=== PATIENT | female | born 1995 | race Caucasian/White ===

== ENCOUNTER 2023-05-24 21:56 | Emergency (ER) | payer OTHER, SELFPAY ==
[2023-05-24 22:08] VITALS: BP 142/73; PULSE 102; RESP 18; TEMP 37.4; O2SAT 100; BMI 42.1
[2023-05-24 23:06] LABS: Anion Gap 11 (12-20); Blood Urea Nitrogen 11 mg/dL (9-16); Calcium 8.8 mg/dL (8.4-10.2); Carbon Dioxide 27 mmol/L (22-29); Chloride 108 mmol/L (96-108); Creatinine Clr Calc Pharmacy 123.8; Estimated Glomerular Filt Rate > 60; Glucose Random 105 mg/dL (60-115); Potassium 3.8 mmol/L (3.3-5.1); Sodium 142 mmol/L (135-145)
[2023-05-24 23:20] LABS: Basophils Absolute Auto 0.1 X10*3/uL (0.0-0.2); Basophils Percent Auto 0.5 % (0-2); Eosinophils Absolute Auto 0.2 X10*3/uL (0.0-0.4); Eosinophils Percent Auto 2.2 % (0-4); Hematocrit 23.8 % (37.0-47.0); Imm Gran Abs Auto 0.02 X10*3/uL (0.00-0.03); Imm Gran Pct Auto 0.2 % (0.0-0.4); Lymphocytes Percent Auto 26.6 % (20-40); Mean Corpuscular HGB Conc 27.7 g/dl (31.0-35.0); Mean Corpuscular Hemoglobin 17.6 pg (27.0-33.0); Mean Platelet Volume 9.3 fL (9.4-12.3); Monocytes Absolute Auto 0.9 X10*3/uL (0.1-1.2); Monocytes Percent Auto 8.3 % (2-11); Neutrophils Absolute Auto 6.9 x10*3/uL (2.0-8.3); Neutrophils Percent Auto 62.2 % (45-73); Platelet Count 465 X10*3/uL (160-400); Red Blood Count 3.75 X10*6/uL (4.20-5.50); Red Cell Distribution Width 17.7 % (11.0-16.0); White Blood Count 11.1 X10*3/uL (4.8-10.8)
[2023-05-24 23:26] LABS: Mean Corpuscular Volume 63.5 fL (80.0-98.0)
[2023-05-24 23:28] LABS: Hemoglobin 6.6 g/dl (12.0-16.0)
[2023-05-24 23:29] LABS: MANUAL DIFF FLAG SCAN
[2023-05-24 23:30] LABS: SLIDE REVIEW VERIFIED
[2023-05-25] VITALS (11 sets, daily range): BP systolic 101–130; BP diastolic 45–71; PULSE 84–106; RESP 12–20; TEMP 36.5–36.9; O2SAT 98–100
[2023-05-25 00:34] LABS: Appearance Urine Cloudy; Color Urine Dark Yellow; Glucose Urine UA Negative (Negative); Leukocyte Esterase Urine Negative (Negative); Nitrite Urine Negative (Negative); Specific Gravity - Urine >= 1.030 (1.005-1.025); UMIC TRIGGER UACC YES; Urine Blood Large (3+) (Negative); Urine Ketones Trace mg/dL (Negative); Urine Protein 30 (1+) mg/dL (Neg-Trace)
[2023-05-25 00:35] LABS: UPreg QC Valid YES; Urine Pregnancy NEGATIVE (NEGATIVE)
[2023-05-25 00:37] LABS: Bacteria Urine None Seen (None Seen); RBC Urine >20 /HPF (0-2); Squamous Epithelial Cell Urine 0-2 /HPF (0-2); WBC Urine 0-5 /HPF (0-5)
--- NOTE | 2023-05-25 00:56 | ED.GENADULT ---
HPI - General Adult General Chief complaint: Abdominal Pain Stated complaint: heavy menses Time Seen by Provider: 05/25/23 00:55 History of Present Illness HPI narrative: The patient is a 27-year-old who comes to the emergency room because of vaginal bleeding. She says she has been having ongoing vaginal bleeding for the last 3 or 4 months but it has been heavier over the last 2 weeks. Today she felt somewhat weak and decided to come to the emergency room. She has not fainted. The patient says that she had heavy vaginal bleeding 5 years ago when she was 22. At that time she was seen at [facility]. She reports that she had received 2 units of packed red cells because of her anemia associated with her vaginal bleeding. She says that 2 days after she received the 2 units of packed red cells she had a syncopal episode and went back to [facility] and received another 2 units of blood. The patient says that at that time she was also diagnosed with PCOS and was seeing an cassandra architect. She was on metformin. The patient has not seen a doctor in a few years. She does not have any recollection of ever seeing a budget counselor. She has certainly not seen a budget counselor in the last few years. She has had a chest pain. No fever, sweats, chills. She is quite certain she has not . No abdominal pain, nausea, vomiting. Related Data Previous Rx's ?Medication ?Instructions ?Recorded ferrous sulfate 325 mg (65 mg 325 mg PO DAILY #30 tabs 05/25/23 iron) tablet (Iron (ferrous sulfate)) medroxyprogesterone 10 mg tablet 10 mg PO DAILY #30 tabs 05/25/23 (Provera) Allergies Allergy/AdvReac Type Severity Reaction Status Date / Time epinephrine [EPINEPHRINE] Allergy Unknown SWELLING Verified 05/24/23 22:15 Review of Systems Review of Systems: Yes all other systems are reviewed and are negative [facility] Social History Social History Smoked in Last 30 Days: No Use of substances other than those prescribed or required for medical reasons: No Advance Directives: No Advance Directives Information Provided: No Patient : No Physical Exam ED Vital Signs: Vital Signs - 24 hr 05/24/23 22:08 05/25/23 00:14 05/25/23 02:42 Temperature 99.3 F 98.2 F 97.7 F Pulse Rate 102 H 88 90 Respiratory Rate 18 16 12 Blood Pressure 142/73 H 130/71 120/64 Pulse Oximetry 100 98 Oxygen Delivery Method Room Air Room Air 05/25/23 02:58 Temperature 98.1 F Pulse Rate 84 Respiratory Rate 14 Blood Pressure 114/66 Pulse Oximetry Oxygen Delivery Method BMI result Body Mass Index 42.1 Const Other: The patient is awake and alert. She looks mildly pale but does not seem in distress. HENMT Other: Face is symmetrical. Mucous membranes are moist Eyes Other: Pupils are round equal, conjunctivae are clear, extraocular movements intact. Resp Effort & Inspection: normal respiratory effort Auscultation: clear to auscultation bilaterally Cardio Rate: regular rate Rhythm: regular rhythm Heart sounds: S1 normal heart sound present and S2 normal heart sound present GI Other: Abdomen is soft and nontender Back/Spine/Pelvis Other: Speculum exam showed a small amount of blood in the vaginal vault with a small blood clot in the cervix. Only minimal ongoing bleeding seemed apparent. Skin Other: Skin is pale and dry. Neuro Other: The patient is awake, alert, pleasant, cooperative. She is nontoxic. She is neurologically intact. Extrem Other: No peripheral edema Medications Administered Discontinued Medications Generic Name Dose Route Start Last Admin Trade Name Freq PRN Reason Stop Dose Admin Tranexamic Acid 1,000 mg/ 60 mls @ 360 mls/hr 05/25/23 01:09 05/25/23 01:34 Sodium Chloride IV 05/25/23 01:18 Infused ONCE ONE Infusion Sodium Chloride 100 mls @ 100 mls/hr 05/25/23 01:40 05/25/23 02:31 Ns IV 05/25/23 02:39 100 mls/hr ONCE ONE Administration Ketorolac Tromethamine 15 mg 05/25/23 01:09 05/25/23 01:21 Ketorolac Tromethamine 15 Mg/Ml Vial IVPUSH 05/25/23 01:10 15 mg ONCE ONE Administration Medroxyprogesterone Acetate 10 mg 05/25/23 02:05 05/25/23 03:21 Medroxyprogesterone Acetate 5 Mg Tablet PO 05/25/23 02:06 10 mg ONCE ONE Administration Medical Decision Making Medical Decision Making MDM Narrative: The patient is a 27-year-old female who presents with a complaint of persistent vaginal bleeding over the last 4 months. She has not . She says the bleeding has been fatigued she is anemic with a hemoglobin of 6.6. She is hemodynamically stable however. We have no recent labs to help determine how acute the patient's anemia is but her red cell indices are all abnormal. The patient describes having an episode 5 years ago when she had heavy vaginal bleeding and required blood transfusions. She also says that she was diagnosed with PCOS at that time and was on metformin for awhile. Unfortunately she has not contact with doctors and has not seen anyone in a few years. She has been on no medications. The patient was given 15 mg of ketorolac IV and 1,000 mg a tranexamic IV. I discussed the case with the budget counselor Dr. Duncan who recommends 2 units of packed red blood cells and also recommend starting the patient on Provera 10 mg daily for 30 days with close gynecological follow up. Lab Data 05/24/23 22:48 05/24/23 22:48 Labs: Lab Results 05/24/23 05/24/23 05/25/23 Range/Units 22:48 23:55 00:16 WBC 11.1 H (4.8-10.8) X10*3/uL RBC 3.75 L (4.20-5.50) X10*6/uL Hgb 6.6 L* (12.0-16.0) g/dl Hct 23.8 L (37.0-47.0) % MCV 63.5 L (80.0-98.0) fL MCH 17.6 L (27.0-33.0) pg MCHC 27.7 L (31.0-35.0) g/dl RDW 17.7 H (11.0-16.0) % Plt Count 465 H (160-400) X10*3/uL MPV 9.3 L (9.4-12.3) fL Immature Gran % (Auto) 0.2 (0.0-0.4) % Neut % (Auto) 62.2 (45-73) % Lymph % (Auto) 26.6 (20-40) % [place] % (Auto) 8.3 (2-11) % Eos % (Auto) 2.2 (0-4) % Baso % (Auto) 0.5 (0-2) % Lymph # (Auto) 3.0 (1.2-4.9) X10*3/uL [place] # (Auto) 0.9 (0.1-1.2) X10*3/uL Eos # (Auto) 0.2 (0.0-0.4) X10*3/uL Baso # (Auto) 0.1 (0.0-0.2) X10*3/uL Abs Immat Gran (auto) 0.02 (0.00-0.03) X10*3/uL Absolute Neuts (auto) 6.9 (2.0-8.3) x10*3/uL Absolute Nucleated RBC 0.000 (0.0-0.012) X10*3/uL Nucleated RBC % (auto) 0.0 (0.0-0.2) /100WBC Smear Tech's Comments VERIFIED Sodium 142 (135-145) mmol/L Potassium 3.8 (3.3-5.1) mmol/L Chloride 108 (96-108) mmol/L Carbon Dioxide 27 (22-29) mmol/L Anion Gap 11 L (12-20) BUN 11 (9-16) mg/dL Creatinine 0.78 (0.5-1.4) mg/dL Estim Creat Clear Calc 123.8 Estimated GFR > 60 Random Glucose 105 (60-115) mg/dL Calcium 8.8 (8.4-10.2) mg/dL Urine Color Dark Yellow Urine Appearance Cloudy Urine pH 5.0 (5.0-9.0) Ur Specific [place] >= 1.030 H (1.005-1.025) Urine Protein 30 (1+) H (Neg-Trace) mg/dL Urine Glucose (UA) Negative (Negative) mg/dL Urine Ketones Trace (Negative) mg/dL Urine Blood Large (3+) H (Negative) Urine Nitrite Negative (Negative) Ur Leukocyte Esterase Negative (Negative) Urine RBC >20 H (0-2) /HPF Urine WBC 0-5 (0-5) /HPF Ur Squamous Epith Cells 0-2 (0-2) /HPF Urine Bacteria None Seen (None Seen) Hyaline Casts 3-5 (0-2) /LPF Urine Test NEGATIVE (NEGATIVE) Blood Type O Positive Antibody Screen NEGATIVE Crossmatch See Detail Discharge Plan Discharge Clinical Impression: Abnormal vaginal bleeding, Anemia Patient Disposition: Still a Patient Additional Instructions: Please take the prescribed Provera once a day for 1 month. Also take an iron pill daily. Please contact Dr. Duncan's office tomorrow morning to set up a prompt follow up appointment with a budget counselor. Return to the emergency room if significantly worse. Prescriptions: New medroxyprogesterone [Provera] 10 mg tablet 10 mg PO DAILY Qty: 30 0RF ferrous sulfate [Iron (ferrous sulfate)] 325 mg (65 mg iron) tablet 325 mg PO DAILY Qty: 30 0RF Referrals: Martin Duncan MD [Physician] - (abnormal vaginal bleeding requiring transfusion) Print Language: Macedonian
[2023-05-25] MEDS: Tranexamic Acid 1,000 MG in 0.9 % Sodium Chloride 50 ML 360 MG IV (01:20)
[2023-05-25] MEDS: Ketorolac Tromethamine 15 MG/ML VIAL IVPUSH (01:21)
--- NOTE | 2023-05-25 01:33 | PM.GYNCN ---
SUBMERSIBLE PILOT - CN: HPI Data of Consult Consult date: 05/25/23 Primary Care Provider: None Physician Consult Narrative Narrative: I was consulted on Marsha Negron who is a 27 year old female presenting to the emergency room because of vaginal bleeding of 3 to 4 months duration, but it has been heavier over the last 2 weeks. The patient gives a long-term history of vaginal bleeding and diagnosis of PCOS was followed up by production support analyst and was on metformin but not currently, no other associated symptoms cc:: CC: OB [facility] Social History Social History Smoked in Last 30 Days: No Use of substances other than those prescribed or required for medical reasons: No Advance Directives: No Advance Directives Information Provided: No Patient : No Meds Allergies Allergy/AdvReac Type Severity Reaction Status Date / Time epinephrine [EPINEPHRINE] Allergy Unknown SWELLING Verified 05/24/23 22:15 SUBMERSIBLE PILOT Physical Exam Vitals Vital signs: Temp Pulse Resp BP Pulse Ox O2 Del Method 98.2 F 88 16 130/71 98 Room Air 05/25/23 00:14 05/25/23 00:14 05/25/23 00:14 05/25/23 00:14 05/25/23 00:14 05/25/23 00:14 BMI result Body Mass Index 42.1 SUBMERSIBLE PILOT - Results Labs 05/24/23 22:48 05/24/23 22:48 Labs: Short CBC 05/24/23 Range/Units 22:48 WBC 11.1 H (4.8-10.8) X10*3/uL Hgb 6.6 L* (12.0-16.0) g/dl Hct 23.8 L (37.0-47.0) % Plt Count 465 H (160-400) X10*3/uL BMP 05/24/23 22:48 Sodium 142 Potassium 3.8 Chloride 108 Carbon Dioxide 27 BUN 11 Creatinine 0.78 Calcium 8.8 Urine 05/25/23 Range/Units 00:16 Urine Color Dark Yellow Urine Appearance Cloudy Urine pH 5.0 (5.0-9.0) Ur Specific [place] >= 1.030 H (1.005-1.025) Urine Protein 30 (1+) H (Neg-Trace) mg/dL Urine Glucose (UA) Negative (Negative) mg/dL Urine Test NEGATIVE (NEGATIVE) Antibody Screen Antibody Screen NEGATIVE 05/24/23 23:55 Assessment and Plan (1) Abnormal uterine bleeding: Status: Acute Recommended to Dr. Kc the following: Pelvic exam to rule out active vaginal bleeding Transfuse with 2 units of packed RBCs and started on iron sulfate 325 mg p.o. t.i.d. Provera 10 mg p.o. q.d. if the patient receives TXA , Provera p.o. to be started tomorrow (to lower the risk of thrombosis) Close outpatient follow-up for evaluation and endometrial biopsy to rule out endometrial pathology including endometrial hyperplasia and/or malignancy Instructions to be given to patient to come back to the emergency room in case of persistence or worsening of her vaginal bleeding I spent a total of 20 minutes reviewing the chart, communicating to the emergency room provider and documenting the medical record
--- NOTE | 2023-05-25 01:58 | PC.NURSE ---
Vaginal exam performed by with this nurse as a roll cutter. Pt tolerated well.
--- NOTE | 2023-05-25 03:05 | PC.NURSE ---
Pt aox4 resting with family at the bedside. First unit of RBC's started. Pt tolerating well. Denies pain at this time. Monitoring is ongoing.
[2023-05-25] MEDS: medroxyPROGESTERone Acetate 5 MG TABLET 10 MG PO (03:21)
--- NOTE | 2023-05-25 06:28 | PC.NURSE ---
Pt aox4 resting at the bedside. First unit of RBC's completion with no complication or reactions. Pt tolerated well. Vitals remained stable. Second unit of RBC's started.
--- NOTE | 2023-05-25 07:33 | PC.NURSE ---
PT IS A/O X 4 NO SOB/GENEVA NOTED SPEAK IN FULL SENTENCES. DENIES ANY PAIN/DISC. 1UNIT OF RBC IS TRANSFUSING AT THIS TIME. NO ADVERSE REACTION NOTED. PT AWARE OF PLAN OF CARE FOR D/C HOME AFTER TRANSFUSION. WILL CONTINUE TO MONITOR.
== END 2023-05-25 09:57 | disposition home or self-care (01) ==
PROVIDERS: Emergency Provider Emergency Medicine
DX: N93.9 Abnormal uterine and vaginal bleeding, unspecified (principal); D64.9 Anemia, unspecified; E28.2 Polycystic ovarian syndrome
CPT/HCPCS: 36415; 36430; 80048; 81001; 81025; 85025; 86850; 86900; 86901; 86923; 96361; 96374; 96375; 99284; J1885; P9016

== ENCOUNTER → 2023-05-24 22:49 | Outpatient (BNV) | payer SELFPAY | PROVIDERS: Emergency Provider Emergency Medicine; Visit Provider Obstetrics & Gynecology | DX: N93.9 Abnormal uterine and vaginal bleeding, unspecified (principal) | CPT/HCPCS: 99283 ==

== ENCOUNTER 2023-05-29 14:57 | Outpatient (REF) | payer OTHER, SELFPAY | END 2023-05-29 14:58 | disposition home or self-care (01) | LOC: HO.LNP 14:57 | PROVIDERS: Visit Provider Obstetrics & Gynecology | DX: N93.9 Abnormal uterine and vaginal bleeding, unspecified (principal) | CPT/HCPCS: 58100; 58300; 88142; 88305; 99202; J7298 ==

== ENCOUNTER 2023-05-29 14:57 | Outpatient (AMB) | payer SELFPAY ==
--- NOTE | 2023-05-29 15:05 | MHC.OFFVIS ---
Vital Signs 05/29/23 15:07 Height 5 ft 2 in Weight 228 lb BMI 41.7 Intake Visit Reasons: EMB/ ER follow up High Density Finishing Operator Required: No Information Interpreted: non-clinical & clinical Accompanied by: Self / Same As Patient Allergies epinephrine [EPINEPHRINE] Allergy (Unknown, Verified 05/29/23 15:08) SWELLING HPI Comments Details: Presenting for follow-up after ED visit. The patient went to the emergency room few days ago with 5 year history of heavy vaginal bleeding , her H&H was 6.6/23.8, the patient received 2 units of blood transfusion. The patient was discharged on Provera 10 mg p.o. q.d., since then her vaginal bleeding has resolved completely. The patient gives a long history of heavy menstrual cycles associated passage of blood clots and pelvic cramping and hair growth PFSH Family History Mother Breast cancer Maternal Grandmother Breast cancer Father Schizophrenia, acute Social History Household Members: None Housing: Apartment Alcohol intake: never Patient Tobacco Use Status: Never used Tobacco Current occupation: DOCUMENT CONTROL ASSISTANT Sexually active: No Sexual orientation: Straight/Heterosexual Gender identity: Female Review of Systems Const All systems reviewed & are unremarkable except as noted in HPI and below Card Reports as per HPI Resp Reports as per HPI GI Reports as per HPI and Reports no additional complaints Reports as per HPI Physical Exam Vital Signs: BMI result Body Mass Index 41.7 Const General: cooperative, healthy appearing and comfortable Chest Chest palpation & inspection: normal inspection of the chest and normal palpation of entire chest wall Breast/axilla inspection: normal inspection of the breasts and normal inspection of the axillae Breast/axilla palpation: normal palpation of the breasts, normal palpation of the axillae and no axillary lymphadenopathy General: Yes bladder normal to palpation External Female Exam: No lesion Speculum Exam - Vagina: normal appearance of the vagina, normal palpation, normal vaginal discharge and not erythematous Speculum Exam - Cervix: normal appearance of the cervix and normal palpation Bimanual exam- vagina & uterus: normal bimanual exam, normal palpation, uterine size normal, bladder normal to palpation, consistency normal and normal palpation Bimanual Exam- Adnexa, other: normal adnexae, no masses and no tenderness Office Procedures Endometrial Biopsy Details: The patient was counseled regarding the indication and benefits of endometrial sampling to rule out endometrial pathology including not limited to endometrial hyperplasia or endometrial cancer and others; The alternatives (Either do nothing vs. hysteroscopy D&C) & the risks were discussed with the patient including but not limited: pain, uterine perforation, bleeding, infection, possible injury to bladder, bowel, ureter, possible need for blood transfusion with all its possible risks. The patient verbalized understanding all questions answered and signed consent. Office urine test done was negative The patient was placed into the dorsal lithotomy position; a speculum was inserted in the vagina. Using aseptic technique for the procedure, the cervix was cleansed with Betadine. The anterior lip of the cervix was grasped with a single tooth tenaculum. The uterus was sounded to 7 cm with a 4 mm Pipelle was used. Tissues samples were obtained and placed in formalin, in a patient labeled container and sent to the pathology department. At the end of the procedure, there was minimal bleeding noted The patient tolerated the procedure well and was discharged in good condition with the following instructions: Nothing in the vagina until the bleeding stops. No sex until the bleeding stops, to call if any of the following occurs: fever (>100.4), flu-like symptoms, abdominal pain, heavy bleeding, four smelling vaginal discharge. The patient was instructed to schedule a Follow up appointment in 2 weeks to discuss pathology results of the biopsy and treatment options. This note was generated with a voice recognition program. Some errors may have been overlooked during the review of this note. Sometimes these errors may affect the content or meaning of a given sentence. [id number] Biopsy IUD Insert/Removal Details Details: The patient is presenting for Mirena IUD insertion Urine test was done in the office and was negative; All the contraindications were excluded. The following possible complications were discussed with the patient: Intrauterine , Ectopic , Sepsis, Pelvic Infection, Irregular Bleeding and Amenorrhea, Perforation, Expulsion, Ovarian Cysts, Breast Cancer, The following adverse effects were discussed with the patient: alteration of menstrual bleeding pattern, including: unscheduled uterine bleeding decreased uterine bleeding increased scheduled uterine bleeding female genital tract bleeding ,amenorrhea , genital discharge , vulvovaginitis , breast pain , benign ovarian cyst and associated complications , dysmenorrhea , Gastrointestinal disorders abdominal/pelvic pain, headache/migraine , back pain , acne , depression Alternative options were discussed with the patient including but not limited: control pills, patch, NuvaRing, Depo-medroxyprogesterone acetate, Nexplanon, copper IUD, sterilization, vasectomy, others The procedure was explained in detail to patient , at the end patient signed the informed consent obtained. A no touch technique was used throughout the procedure. A speculum was placed into vagina and cervix was cleaned with betadine). A tenaculum was placed. A plastic sound was advanced through the external and internal os until it reached the fundus of the uterus, the depth was 8 cm. The sound was then withdrawn. The IUD was loaded in a sterile manner and advanced into position. The string was visualized and cut to 3 cm. Tenaculum site hemostatic. All instruments removed from vagina. Patient tolerated the procedure well. NO complications were noted. Patient was instructed to call for fever over 100.4, significant pain unrelieved by Motrin, IUD expulsion, heavy bleeding, or abnormal discharge. In addition, the following clinical considerations were discussed with the patient to call for removal: A stroke or heart attack ,Very severe or migraine headaches ,Unexplained fever ,Yellowing of the skin or whites of the eyes, as these may be signs of serious liver problems , or suspected , Pelvic pain or pain during sex ,HIV positive seroconversion in herself or her partner , Possible exposure to sexually transmitted infections Unusual vaginal discharge or genital sores , severe vaginal bleeding or bleeding that lasts a long time, or if she misses a menstrual period, Inability to feel Mirena's threads Counseled the patient that the IUD does not protect against STI's, recommended use of condoms for the first 7 days post insertion and explained to the patient that condoms are recommended for patients at risk for sexually transmitted infections. Informed the patient that Mirena IUD is FDA approved for 8 years for contraception for 5 years for the treatment of heavy menses Instructed the patient to schedule a Follow up appointment in 4 to 6 weeks following insertion. This note was generated with a voice recognition program. Some errors may have been overlooked during the review of this note. Sometimes these errors may affect the content or meaning of a given sentence. 26791-[id number] Insertion Procedure code (CPT) selection complete Office Meds Mirena 21 mcg/24 hours (8 yrs) 52 mg intrauterine device Performing Provider: Martin Duncan MD [place] [facility] [place] [facility] Documented (not given) by: Martin Duncan MD on 05/29/23 15:48 Dose Route Admin Location Dispensed Lot Number Expiration Date [facility] Door Repaire[employer] 1 device intrauterine ea Assessment & Plan Assessment & Plan (1) Abnormal uterine bleeding: Comment: Family history of breast cancer Code(s): N93.9 - Abnormal uterine and vaginal bleeding, unspecified Category: Medical Plan: Pap smear done, GC and chlamydia taken CBC, prolactin, TSH, HCG, testosterone total and free, 17 hydroxyprogesterone and pelvic ultrasound ordered. Discussed with the patient the different causes of abnormal bleeding including thyroid disorders, uterine and ovarian pathology, endometrial hyperplasia, carcinoma (especially in patients with a suspicion of PCOS) and other potential causes. Discussed with the patient the work up including CBC (to r/o anemia), prolactin, androgen levels TSH, pelvic Ultrasound, endometrial biopsy to r/o endometrial pathology. EMB done, see procedure note All questions answered and the patient verbalized understanding. Discussed with the patient the options of treatment including Lysteda, cyclic Provera, control pills, Mirena IUD. All pros, cons, risks and benefits if each option was discussed with the patient and the patient decided to go ahead with Mirena IUD so a more detailed discussion about it was conducted including mechanism of action, risks (increasing the risk of breast cancer especially in her situation with her family history of breast cancer, uterine perforation, infection, injury to bladder, bowel, displacement, and others) benefits (hypo menorrhea, amenorrhea, ...). GC/CT were taken and Mirena IUD inserted, see procedure note. Instructions given to the patient to discontinue Provera immediately. All questions answered, the patient verbalized understanding. (2) Anemia: Comment: Status post 2 units of packed RBCs Code(s): D64.9 - Anemia, unspecified Category: Medical Plan: Iron sulfate 325 mg p.o. t.i.d. recommended the patient (3) Hirsutism: Comment: Possible PCOS Code(s): L68.0 - Hirsutism Category: Medical Plan: Discussed with the patient the differential diagnosis of hirsutism including idiopathic, ovarian tumor, late onset congenital adrenal hyperplasia, PCOS and other possible causes will start with the w/u including testosterone total and free, 17 hydroxyprogesterone endometrial biopsy . Instructions given the patient to schedule a 2 week follow-up appointment Orders: Orders HCG Quantitative Today N93.9 - Abnormal uterine and vaginal bleeding, unspecified Complete Blood Count no Diff Today N93.9 - Abnormal uterine and vaginal bleeding, unspecified 17 Hydroxyprogesterone Today L68.0 - Hirsutism TSH reflex Free T4 Today N93.9 - Abnormal uterine and vaginal bleeding, unspecified Prolactin Today N93.9 - Abnormal uterine and vaginal bleeding, unspecified US pelvic and transvaginal Today N93.9 - Abnormal uterine and vaginal bleeding, unspecified Testosterone, Free/Total Today L68.0 - Hirsutism AMB Endometrial Biopsy Today N93.9 - Abnormal uterine and vaginal bleeding, unspecified AMB IUD Insertion/Removal - Practice Supplied Today N93.9 - Abnormal uterine and vaginal bleeding, unspecified Medications: New Mirena (levonorgestrel) 1 device intrauterine ONCE 1 ea 0RF NS N93.9 - Abnormal uterine and vaginal bleeding, unspecified Discontinued medroxyprogesterone (Provera) Discontinued Reason: Doctor's Order 10 mg PO DAILY 30 tabs 0RF Coding Level of Care Code Est Pt Level 3 (95910) Procedure Only Diagnoses Abnormal uterine bleeding N93.9 Anemia D64.9 Hirsutism L68.0 CPT Codes Endometrial Biopsy - CPT: 88443-Laqoxzabwgw Biopsy ([id number]) Details - CPT: 68329-QBC Insertion ([id number])
[2023-05-29 15:07] VITALS: BMI 41.7
== END 2023-05-29 15:55 | disposition home or self-care (01) ==
LOC: HO.HWS 14:57
PROVIDERS: Visit Provider Obstetrics & Gynecology
DX: N93.9 Abnormal uterine and vaginal bleeding, unspecified (principal); D64.9 Anemia, unspecified; L68.0 Hirsutism; Z30.430 Encounter for insertion of intrauterine contraceptive device
CPT/HCPCS: 58100; 58300; 99203

== ENCOUNTER 2023-05-29 16:03 | Outpatient (REF) | payer SELFPAY ==
[2023-05-29 17:01] LABS: Hematocrit 33.1 % (37.0-47.0); Hemoglobin 9.7 g/dl (12.0-16.0); Mean Corpuscular HGB Conc 29.3 g/dl (31.0-35.0); Mean Corpuscular Volume 71.8 fL (80.0-98.0); Mean Platelet Volume 9.3 fL (9.4-12.3); Platelet Count 445 X10*3/uL (160-400); Red Blood Count 4.61 X10*6/uL (4.20-5.50); Red Cell Distribution Width 28.3 % (11.0-16.0); White Blood Count 11.3 X10*3/uL (4.8-10.8)
[2023-05-29 19:46] LABS: HCG Quantitative < 2 mIU/mL; TSH reflex Free T4 1.61 uIU/mL (0.32-4.0)
[2023-05-30 07:28] LABS: CT PCR NOT DETECTED (Not Detect.); NG PCR NOT DETECTED (Not Detect.)
[2023-06-03 14:59] LABS: Testosterone, Total 75 ng/dL (2-45)
== END 2023-05-29 16:04 | disposition home or self-care (01) ==
LOC: HO.LAB 16:03
PROVIDERS: Visit Provider Obstetrics & Gynecology
DX: N93.9 Abnormal uterine and vaginal bleeding, unspecified (principal); L68.0 Hirsutism
CPT/HCPCS: 0353U; 83498; 84146; 84402; 84403; 84443; 84702; 85027